=== PATIENT | female | born 1990 | race American Indian/Alaskan Native ===

== ENCOUNTER 2017-06-14 19:46 | Emergency (ER) | payer MEDICAID ==
[2017-06-14 20:07] VITALS: BP 129/92
[2017-06-14] MEDS ORDERED: Clindamycin HCl 150 MG Cap PO ONE (21:22)
[2017-06-14] MEDS ORDERED: Acetaminophen/HYDROcodone 325-10 MG Tab PO ONE ×2 (21:22→21:41)
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
[2017-06-14] MEDS ORDERED: Acetaminophen/HYDROcodone 325-10 MG Tab ONE (21:41)
== END 2017-06-14 21:56 | disposition home or self-care (01) ==
LOC: DL.ED 19:46
DX: O90.0 Disruption of cesarean delivery wound (principal); D64.9 Anemia, unspecified; Z90.49 Acquired absence of other specified parts of digestive tract; Z87.891 Personal history of nicotine dependence; Z88.0 Allergy status to penicillin
CPT/HCPCS: 87070; 99282; A9270; 87077; 87186

== ENCOUNTER 2017-09-22 00:30 | Emergency (ER) | payer MEDICAID ==
[2017-09-22 00:41] VITALS: BP 139/89
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
[2017-09-22] MEDS ORDERED: Acetaminophen/HYDROcodone 325-10 MG Tab PO ONE (01:22)
[2017-09-22] MEDS ORDERED: LORazepam 1 MG Tab PO ONE (01:29)
== END 2017-09-22 01:39 | disposition home or self-care (01) ==
LOC: DL.ED 00:30
DX: S06.0X1A Concussion with loss of consciousness of 30 minutes or less, initial encounter (principal); S02.5XXA Fracture of tooth (traumatic), initial encounter for closed fracture; S00.83XA Contusion of other part of head, initial encounter; Z87.891 Personal history of nicotine dependence; Z88.0 Allergy status to penicillin; Y04.0XXA Assault by unarmed brawl or fight, initial encounter
CPT/HCPCS: 70450; 70486; 99284; A9270

== ENCOUNTER 2017-10-23 11:32 | Emergency (ER) | payer MEDICAID, OTHER ==
[2017-10-23 12:54] VITALS: BP 104/88
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
[2017-10-23] MEDS ORDERED: Lidocaine 2% Jelly 10 ML Urojet MUCMEM ONE (13:01)
[2017-10-23] MEDS ORDERED: Benzocaine 20% Oral Spray 59.2 ML Canister MUCMEM ONE (13:01)
== END 2017-10-23 13:22 | disposition home or self-care (01) ==
LOC: DL.ED 11:32
DX: K02.9 Dental caries, unspecified (principal); Z87.891 Personal history of nicotine dependence; Z88.0 Allergy status to penicillin
CPT/HCPCS: 99282

== ENCOUNTER 2017-11-25 21:10 | Emergency (ER) | payer MEDICAID, OTHER ==
[2017-11-25 21:34] VITALS: BP 118/83
[2017-11-25 22:40] LABS: ANION GAP 13.1; CHLORIDE,CL 105 mmol/L (101-111); SODIUM,NA 138 mmol/L (135-145)
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
== END 2017-11-25 22:58 | disposition home or self-care (01) ==
LOC: DL.ED 21:10
DX: J06.9 Acute upper respiratory infection, unspecified (principal); F17.210 Nicotine dependence, cigarettes, uncomplicated; Z88.0 Allergy status to penicillin
CPT/HCPCS: 36415; 71046; 80053; 85025; 87081; 87430; 87804; 99283

== ENCOUNTER 2018-02-17 19:11 | Emergency (ER) | payer MEDICAID, OTHER ==
[2018-02-17] MEDS ORDERED: Sodium Chloride 0.9% 10 ML Syringe FLUSH PRN (19:49)
[2018-02-17] MEDS ORDERED: Sodium Chloride 0.9% 1,000 ML IV ONE (19:50)
[2018-02-17] MEDS ORDERED: Ondansetron 4 MG/2 ML SDV IV ONE ×2 (19:50→21:13)
[2018-02-17] MEDS ORDERED: Ketorolac 30 MG/ML SDV IVPUSH ONE (19:50)
--- NOTE | 2018-02-17 20:21 | EDM.PDOC ---
ED HPI GENERAL MEDICAL PROBLEM - General Chief Complaint: Headache Stated Complaint: [id number] HEADACHE FOR 3 DAYS Time Seen by Provider: 02/17/18 19:43 Source of Information: Reports: Patient, RN, RN Notes Reviewed History Limitations: Reports: No Limitations - History of Present Illness INITIAL COMMENTS - FREE TEXT/NARRATIVE: Patient presents to the ER with c/o headache for the past 3 days that she has been unable to get rid of. She states it is on the left side of the head and neck. She admits to taking Tylenol and Ibuprofen for the pain without relief. Patient admits to chills at times, no fever, no cough or sore throat. Patient admits to nausea at times. No vomiting. Patient states her children have had influenza. Onset: Gradual Location: Reports: Head Quality: Reports: Pressure, Throbbing Improves with: Reports: None Worsens with: Reports: None Associated Symptoms: Reports: Fever/Chills, Nausea/Vomiting Treatments RADIOLOGY ASST: Reports: Acetaminophen, NSAIDS Headache Pain Score (Numeric/FACES): 6 - Related Data Allergies Allergy/AdvReac Type Severity Reaction Status Date / Time Penicillins Allergy Hives Verified 02/17/18 19:29 Home Meds: Home Meds Vit #76/Iron,Carb/Fa [Prenatabs Rx] 1 tab .XX DAILY 02/17/18 [History] Ranitidine HCl [Ranitidine] 150 mg PO DAILY 02/17/18 [History] Past Medical History - Past Health History Medical/Surgical History: Denies Medical/Surgical History Gastrointestinal History: Reports: None 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 Social & Family History - Family History Family Medical History: Noncontributory - Tobacco Use Smoking Status *Q: Former Smoker Years of Tobacco use: 9 Packs/Tins Daily: 0.1 Used Tobacco, but Quit: Yes Month/Year Tobacco Last Used: Nov Second Hand Smoke Exposure: No - Caffeine Use Caffeine Use: Reports: Soda - Alcohol Use Days Per Week of Alcohol Use: 0 Number of Drinks Per Day: 6 Total Drinks Per Week: 0 - Recreational Drug Use Recreational Drug Use: Yes Drug Use in Last 12 Months: Yes Recreational Drug Type: Reports: Marijuana/Hashish Recreational Drug Use Frequency: Monthly - Living Situation & Occupation Living situation: Reports: with Significant Other Occupation: Employed ED ROS GENERAL - Review of Systems Review Of Systems: ROS reveals no pertinent complaints other than HPI. - Physical Exam Exam: See Below Exam Limited By: No Limitations General Appearance: Alert, WD/WN, No Apparent Distress Eye Exam: Bilateral Eye: EOMI, Normal Inspection, PERRL Ears: Normal External Exam, Hearing Grossly Normal Nose: Normal Inspection Throat/Mouth: Normal Inspection, Normal Voice, No Airway Compromise Head Exam: Atraumatic, Normocephalic Neck: Normal Inspection, Supple, Non-Tender, Full Range of Motion Respiratory/Chest: No Respiratory Distress, Lungs Clear, Normal Breath Sounds, No Accessory Muscle Use, Chest Non-Tender Cardiovascular: Normal Peripheral Pulses, Regular Rate, Rhythm, No Edema, No Gallop, No JVD, No Murmur, No Rub GI/Abdominal: Normal Bowel Sounds, Soft, Non-Tender, No Organomegaly, No Distention, No Abnormal Bruit, No Mass (Female) Exam: Deferred Rectal (Female) Exam: Deferred Neuro Exam (Abbreviated): Alert, Oriented, CN II-XII Intact, Normal Cognition, Normal Gait, Normal Reflexes, No Motor/Sensory Deficits Back Exam: Normal Inspection, Full Range of Motion, NT Extremities: Normal Inspection, Normal Range of Motion, Non-Tender, No Pedal Edema, Normal Capillary Refill Psychiatric: Normal Affect, Normal Mood Skin Exam: Warm, Dry, Intact, Normal Color, No Rash Course - Vital Signs Last Recorded V/S: Last Vital Signs Temp 97.1 F 02/17/18 19:20 Pulse 74 02/17/18 19:20 Resp 16 02/17/18 19:20 BP 120/77 02/17/18 19:20 Pulse Ox 100 02/17/18 19:20 - Orders/Labs/Meds Orders: Active Orders 24 hr Category Date Time Status Peripheral IV Care [RC] . DIRECTED Care 02/17/18 19:50 Active DRUG SCREEN URINE BIORAD [URCHEM] Stat Lab 02/17/18 20:10 Ordered HCG QUALITATIVE,URINE [URCHEM] Stat Lab 02/17/18 20:10 Ordered UA W/MICROSCOPIC [URIN] Stat Lab 02/17/18 20:10 Ordered Sodium Chloride 0.9% [Saline Flush] Med 02/17/18 19:49 Active 10 ml FLUSH ASDIRECTED PRN Peripheral IV Insertion Adult [OM.PC] Stat Oth 02/17/18 19:49 Ordered Medication Orders Sodium Chloride (Saline Flush) 10 ml FLUSH ASDIRECTED PRN PRN Reason: Keep Vein Open Last Admin: 02/17/18 20:05 Dose: 10 ml Labs: Laboratory Tests 02/17/18 02/17/18 02/17/18 Range/Units 20:03 20:03 20:10 WBC 6.6 (5.0-10.0) 10^3/uL RBC 4.80 (4.2-5.4) 10^6/uL Hgb 11.0 L (12.0-16.0) g/dL Hct 34.7 L (37.0-47.0) % MCV 72.3 L (80-100) fL MCH 22.9 L (27.0-34.0) pg MCHC 31.7 L (33.0-35.0) g/dL Plt Count 344 D (150-450) 10^3/uL Neut % (Auto) 40.9 L (42.2-75.2) % Lymph % (Auto) 48.9 (20.5-50.1) % Blaine % (Auto) 8.4 H (2-8) % Eos % (Auto) 1.5 (1.0-3.0) % Baso % (Auto) 0.3 (0.0-1.0) % Sodium 138 (135-145) mmol/L Potassium 4.1 (3.6-5.0) mmol/L Chloride 103 (101-111) mmol/L Carbon Dioxide 27.0 (21.0-31.0) mmol/L Anion Gap 12.1 BUN 13 (7-18) mg/dL Creatinine 0.5 L (0.6-1.3) mg/dL Est Cr Clr Drug Dosing 147.23 mL/min Estimated GFR (MDRD) > 60 BUN/Creatinine Ratio 26.00 Glucose 86 (74-105) mg/dL Calcium 9.1 (8.4-10.2) mg/dl Total Bilirubin 0.5 (0.2-1.0) mg/dL AST 48 H (10-42) IU/L ALT 39 (10-60) IU/L Alkaline Phosphatase 70 (42-121) IU/L Total Protein 7.9 (6.7-8.2) g/dl Albumin 4.0 (3.2-5.5) g/dl Globulin 3.9 Albumin/Globulin Ratio 1.03 Urine Color Yellow (YELLOW) Urine Appearance Clear (CLEAR) Urine pH 7.0 (5.0-9.0) Ur Specific [place] 1.020 (1.005-1.030) Urine Protein Negative (NEGATIVE) Urine Glucose (UA) Negative (NEGATIVE) Urine Ketones Negative (NEGATIVE) Urine Occult Blood Negative (NEGATIVE) Urine Nitrite Negative (NEGATIVE) Urine Bilirubin Negative (NEGATIVE) Urine Urobilinogen 0.2 (0.2-1.0) mg/dL Ur Leukocyte Esterase Negative (NEGATIVE) Urine RBC 0-5 /HPF Urine WBC 0-5 (0-5/HPF) /HPF Ur Epithelial Cells Rare /HPF Urine Bacteria Rare (0-FEW/HPF) /HPF Urine Mucus Rare /LPF Urine HCG, Qual Urine Opiates Screen (NEGATIVE) Ur Oxycodone Screen (NEGATIVE) Urine Methadone Screen (NEGATIVE) Ur Barbiturates Screen (NEGATIVE) U Tricyclic Antidepress (NEGATIVE) Ur Phencyclidine Scrn (NEGATIVE) Ur Amphetamine Screen (NEGATIVE) U Methamphetamines Scrn (NEGATIVE) Urine MDMA Screen (NEGATIVE) U Benzodiazepines Scrn (NEGATIVE) Urine Cocaine Screen (NEGATIVE) U Marijuana (THC) Screen (NEGATIVE) 02/17/18 02/17/18 Range/Units 20:10 20:10 WBC (5.0-10.0) 10^3/uL RBC (4.2-5.4) 10^6/uL Hgb (12.0-16.0) g/dL Hct (37.0-47.0) % MCV (80-100) fL MCH (27.0-34.0) pg MCHC (33.0-35.0) g/dL Plt Count (150-450) 10^3/uL Neut % (Auto) (42.2-75.2) % Lymph % (Auto) (20.5-50.1) % Blaine % (Auto) (2-8) % Eos % (Auto) (1.0-3.0) % Baso % (Auto) (0.0-1.0) % Sodium (135-145) mmol/L Potassium (3.6-5.0) mmol/L Chloride (101-111) mmol/L Carbon Dioxide (21.0-31.0) mmol/L Anion Gap BUN (7-18) mg/dL Creatinine (0.6-1.3) mg/dL Est Cr Clr Drug Dosing mL/min Estimated GFR (MDRD) BUN/Creatinine Ratio Glucose (74-105) mg/dL Calcium (8.4-10.2) mg/dl Total Bilirubin (0.2-1.0) mg/dL AST (10-42) IU/L ALT (10-60) IU/L Alkaline Phosphatase (42-121) IU/L Total Protein (6.7-8.2) g/dl Albumin (3.2-5.5) g/dl Globulin Albumin/Globulin Ratio Urine Color (YELLOW) Urine Appearance (CLEAR) Urine pH (5.0-9.0) Ur Specific [place] (1.005-1.030) Urine Protein (NEGATIVE) Urine Glucose (UA) (NEGATIVE) Urine Ketones (NEGATIVE) Urine Occult Blood (NEGATIVE) Urine Nitrite (NEGATIVE) Urine Bilirubin (NEGATIVE) Urine Urobilinogen (0.2-1.0) mg/dL Ur Leukocyte Esterase (NEGATIVE) Urine RBC /HPF Urine WBC (0-5/HPF) /HPF Ur Epithelial Cells /HPF Urine Bacteria (0-FEW/HPF) /HPF Urine Mucus /LPF Urine HCG, Qual Negative Urine Opiates Screen Negative (NEGATIVE) Ur Oxycodone Screen Negative (NEGATIVE) Urine Methadone Screen Negative (NEGATIVE) Ur Barbiturates Screen Negative (NEGATIVE) U Tricyclic Antidepress Negative (NEGATIVE) Ur Phencyclidine Scrn Negative (NEGATIVE) Ur Amphetamine Screen Negative (NEGATIVE) U Methamphetamines Scrn Negative (NEGATIVE) Urine MDMA Screen Negative (NEGATIVE) U Benzodiazepines Scrn Negative (NEGATIVE) Urine Cocaine Screen Negative (NEGATIVE) U Marijuana (THC) Screen Positive H (NEGATIVE) Influenza A & B: NEGATIVE Meds: Medications Generic Name Dose Route Start Last Admin Trade Name Freq PRN Reason Stop Dose Admin Sodium Chloride 10 ml 02/17/18 19:49 02/17/18 20:05 Saline Flush FLUSH 10 ml ASDIRECTED PRN Administration Keep Vein Open Discontinued Medications Generic Name Dose Route Start Last Admin Trade Name Freq PRN Reason Stop Dose Admin Al Hydroxide/Mg Hydroxide 30 ml 02/17/18 21:13 02/17/18 21:22 Gi Cocktail PO 02/17/18 21:14 30 ml ONETIME ONE Administration Hydromorphone HCl 0.5 mg 02/17/18 20:38 02/17/18 20:44 Dilaudid IVPUSH 02/17/18 20:39 0.5 mg ONETIME ONE Administration Sodium Chloride 1,000 mls @ 999 mls/hr 02/17/18 19:50 02/17/18 19:55 Normal Saline IV 02/17/18 20:50 999 mls/hr .BOLUS ONE Administration Ketorolac Tromethamine 30 mg 02/17/18 19:50 02/17/18 20:03 Toradol IVPUSH 02/17/18 19:51 30 mg ONETIME ONE Administration Ondansetron HCl 4 mg 02/17/18 19:50 02/17/18 20:02 Zofran IV 02/17/18 19:51 4 mg ONETIME ONE Administration Ondansetron HCl 4 mg 02/17/18 21:13 02/17/18 21:19 Zofran IV 02/17/18 21:14 4 mg ONETIME ONE Administration Departure - Departure Time of Disposition: 21:55 Disposition: Home, Self-Care 01 Condition: Fair Clinical Impression: Headache Qualifiers: Headache type: unspecified Headache chronicity pattern: acute headache Intractability: intractable Qualified Code(s): R51 - Headache - Discharge Information Instructions: General Headache Without Cause, [id number], Pain Medicine Instructions, [id number] Forms: ED Department Discharge Additional Instructions: RX: [place] Use Excedrin and Ibuprofen as directed first for headache Drink plenty of water and stay hydrated Follow up with your primary care facility. - My Orders Last 24 Hours: My Active Orders 02/17/18 19:49 Sodium Chloride 0.9% [Saline Flush] 10 ml FLUSH ASDIRECTED PRN Peripheral IV Insertion Adult [OM.PC] Stat 02/17/18 19:50 Peripheral IV Care [RC] . DIRECTED 02/17/18 20:10 DRUG SCREEN URINE BIORAD [URCHEM] Stat HCG QUALITATIVE,URINE [URCHEM] Stat UA W/MICROSCOPIC [URIN] Stat - Assessment/Plan Last 24 Hours: My Active Orders 02/17/18 19:49 Sodium Chloride 0.9% [Saline Flush] 10 ml FLUSH ASDIRECTED PRN Peripheral IV Insertion Adult [OM.PC] Stat 02/17/18 19:50 Peripheral IV Care [RC] . DIRECTED 02/17/18 20:10 DRUG SCREEN URINE BIORAD [URCHEM] Stat HCG QUALITATIVE,URINE [URCHEM] Stat UA W/MICROSCOPIC [URIN] Stat
[2018-02-17 20:28] LABS: CHLORIDE,CL 103 mmol/L (101-111); SODIUM,NA 138 mmol/L (135-145)
[2018-02-17] MEDS ORDERED: HYDROmorphone 0.5 MG/0.5 ML Syringe IVPUSH ONE (20:38)
[2018-02-17] MEDS ORDERED: GI Cocktail Oral Solution 30 ML PO ONE (21:13)
[2018-02-17 22:07] VITALS: BP 131/72
== END 2018-02-17 22:20 | disposition home or self-care (01) ==
LOC: DL.ED 19:11
DX: R51 Headache (principal); Z88.0 Allergy status to penicillin; Z79.899 Other long term (current) drug therapy; Z87.891 Personal history of nicotine dependence
CPT/HCPCS: 36415; 80053; 80305; 81001; 81025; 85025; 87804; 96361; 96374; 96375; 99284; A9270; J1170; J1885; J2405; J7030; J7050

== ENCOUNTER 2018-12-06 11:20 | Emergency (ER) | payer MEDICAID, OTHER ==
--- NOTE | 2018-12-06 12:05 | EDM.PDOC ---
ED HPI GENERAL MEDICAL PROBLEM - General Chief Complaint: ENT Problem Stated Complaint: STREP THROAT [id number] Time Seen by Provider: 12/06/18 12:04 Source of Information: Reports: Patient History Limitations: Reports: No Limitations - History of Present Illness INITIAL COMMENTS - FREE TEXT/NARRATIVE: Patient comes emergency department today with complaints of a sore throat and cough that has been going on since this morning. She does complain of a headache and some chills but did not check her temperature. All of her children are also being checked for strep and influenza. Her mother lives with her is positive for influenza B in the emergency department. She denies any cough or congestion. No shortness of breath or difficulty breathing. No abdominal pain. No nausea no vomiting. No diarrhea. She did not get her flu shot this year. She did have a family member recently diagnosed with strep as well. 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 Social & Family History - Family History Family Medical History: Noncontributory - Caffeine Use Caffeine Use: Reports: Soda - Living Situation & Occupation Living situation: Reports: with Significant Other Occupation: Employed ED ROS ENT - Review of Systems Review Of Systems: ROS reveals no pertinent complaints other than HPI. ED EXAM, ENT - Physical Exam Exam: See Below Exam Limited By: No Limitations General Appearance: Alert, WD/WN, No Apparent Distress Eye Exam: Bilateral Eye: Normal Inspection, PERRL Ears: Normal External Exam, Normal Canal, Hearing Grossly Normal, Normal TMs Nose: Normal Inspection, Normal Mucousa, No Blood Mouth/Throat: Normal Inspection, Normal Gums, Normal Lips, Normal Teeth Head: Atraumatic, Normocephalic Neck: Normal Inspection, Supple, Non-Tender, Full Range of Motion Respiratory/Chest: No Respiratory Distress, Lungs Clear, Normal Breath Sounds, No Accessory Muscle Use Cardiovascular: Normal Peripheral Pulses, Regular Rate, Rhythm GI/Abdominal: Normal Bowel Sounds, Soft, Non-Tender (Female) Exam: Deferred Rectal (Female) Exam: Deferred Back: Normal Inspection Extremities: Normal Inspection, Normal Range of Motion, Normal Capillary Refill Neurological: Alert, Oriented, CN II-XII Intact, No Motor/Sensory Deficits Psychiatric: Normal Affect Skin: Warm, Dry, Intact, Normal Color, No Rash Lymphatic: No Adenopathy Course - Vital Signs Last Recorded V/S: Last Vital Signs Temp 36.4 C 12/06/18 12:05 Pulse 86 12/06/18 12:05 Resp 18 12/06/18 12:05 BP 130/79 12/06/18 12:05 Pulse Ox 100 12/06/18 12:05 - Orders/Labs/Meds Orders: Active Orders 24 hr Category Date Time Status CULTURE STREP A CONFIRMATION [] Stat Lab 12/06/18 11:10 Results STREP SCRN A RAPID W CULT CONF [] Stat Lab 12/06/18 11:10 Results Labs: Microbiology 12/06/18 11:10 Group A Streptococcus Rapid Screen - Final Throat NEGATIVE STREP A SCREEN - Re-Assessments/Exams Free Text/Narrative Re-Assessment/Exam: 12/06/18 14:12 She has no overt signs of influenza no fever. We will treat her with some prophylaxis of Tamiflu she is comfortable with this plan and her questions are answered. Departure - Departure Time of Disposition: 12:36 Disposition: Home, Self-Care 01 Clinical Impression: Exposure to influenza URI (upper respiratory infection) Qualifiers: URI type: unspecified URI Qualified Code(s): J06.9 - Acute upper respiratory infection, unspecified - Discharge Information Prescriptions: Oseltamivir [Tamiflu] 75 mg PO DAILY 10 Days #10 cap Instructions: Viral Respiratory Infection, [id number] Referrals: Jonah Dong MD [Primary Care Provider] - Forms: ED Department Discharge Additional Instructions: Tylenol and or Ibuprofen as needed for pain fever discomfort. Increase fluids over the next few days. Good hand hygiene at home no sharing of silver goodman. OTC nasal saline rinse for nasal drainage and congestion. Honey as needed for cough. Tamiflu 75mg by mouth once daily for the next 10 days RX given to the patient. Return to the ED if new or worsening symptoms. Follow up with primary care provider in the next 4-6 days if not improving sooner if worse. - My Orders Last 24 Hours: My Active Orders 12/06/18 11:10 CULTURE STREP A CONFIRMATION [RM] Stat STREP SCRN A RAPID W CULT CONF [RM] Stat - Assessment/Plan Last 24 Hours: My Active Orders 12/06/18 11:10 CULTURE STREP A CONFIRMATION [RM] Stat STREP SCRN A RAPID W CULT CONF [RM] Stat Assessment:: URI Influenza exposure influenza prophylaxis. Plan: Tylenol and or Ibuprofen as needed for pain fever discomfort. Increase fluids over the next few days. Good hand hygiene at home no sharing of silver goodman. OTC nasal saline rinse for nasal drainage and congestion. Honey as needed for cough. Tamiflu 75mg by mouth once daily for the next 10 days RX given to the patient. Return to the ED if new or worsening symptoms. Follow up with primary care provider in the next 4-6 days if not improving sooner if worse.
[2018-12-06 12:21] VITALS: BP 130/79
== END 2018-12-06 12:51 | disposition home or self-care (01) ==
LOC: DL.ED 11:20
DX: J06.9 Acute upper respiratory infection, unspecified (principal); Z20.828 Contact with and (suspected) exposure to other viral communicable diseases; Z88.0 Allergy status to penicillin; Z79.899 Other long term (current) drug therapy
CPT/HCPCS: 87081; 87430; 99283

== ENCOUNTER 2019-05-12 20:43 | Emergency (ER) | payer MEDICAID, OTHER ==
[2019-05-12 21:03] VITALS: BP 131/77
--- NOTE | 2019-05-12 22:10 | EDM.PDOC ---
ED HPI GENERAL MEDICAL PROBLEM - General Chief Complaint: Back Pain or Injury Stated Complaint: FELL AND HIT RIB AND FELT IT CRACK Time Seen by Provider: 05/12/19 21:30 Source of Information: Reports: Patient History Limitations: Reports: No Limitations - History of Present Illness INITIAL COMMENTS - FREE TEXT/NARRATIVE: fell on child's bike when trying to catch self and landed on left side, pain to mid lateral left ribs worse with movement and deep breathing. No nausea or vomiting. pain more anterior chest. Took ibpurofen prior to coming to ER. 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: , 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 Musculoskeletal History: Reports: None Neurological History: Reports: None Psychiatric History: Reports: Addiction, Anxiety, Depression Endocrine/Metabolic History: Reports: None Hematologic History: Reports: Anemia, Blood Transfusion(s) Immunologic History: Reports: None Oncologic (Cancer) History: Reports: None Dermatologic History: Reports: None - Infectious Disease History Infectious Disease History: Reports: Chicken Pox - Past Surgical History Head Surgeries/Procedures: Reports: None GI Surgical History: Reports: Appendectomy, Cholecystectomy Female Surgical History: Reports: Section, D&C, Other (See Below) Other Female Surgeries/Procedures: tubal. Social & Family History - Family History Family Medical History: Noncontributory - Tobacco Use Smoking Status *Q: Current Every Day Smoker Years of Tobacco use: 10 Packs/Tins Daily: 0.2 - Caffeine Use Caffeine Use: Reports: Coffee - Recreational Drug Use Recreational Drug Use: Yes Drug Use in Last 12 Months: Yes Recreational Drug Type: Reports: Marijuana/Hashish Recreational Drug Use Frequency: Weekly - Living Situation & Occupation Living situation: Reports: with Significant Other Occupation: Employed ED ROS GENERAL - Review of Systems Review Of Systems: ROS reveals no pertinent complaints other than HPI. ED EXAM, GENERAL - Physical Exam Exam: See Below Exam Limited By: No Limitations General Appearance: Alert, Mild Distress Eye Exam: Bilateral Eye: PERRL Ears: Normal External Exam Nose: Normal Inspection Throat/Mouth: Normal Inspection Neck: Normal Inspection, Full Range of Motion Respiratory/Chest: No Respiratory Distress, Lungs Clear. No: Chest Non-Tender ( left chest below bra line) Cardiovascular: Normal Peripheral Pulses, Regular Rate, Rhythm GI/Abdominal: Normal Bowel Sounds Neurological: Alert, Oriented, Normal Cognition Psychiatric: Normal Affect Skin Exam: Warm, Dry, Intact, Normal Color Course - Vital Signs Last Recorded V/S: Last Vital Signs Temp 97.8 F 05/12/19 20:46 Pulse 118 H 05/12/19 20:46 Resp 20 05/12/19 20:46 BP 131/77 05/12/19 20:46 Pulse Ox 100 05/12/19 20:46 - Orders/Labs/Meds Orders: Active Orders 24 hr Category Date Time Status Ribs 2V w Chest Lt [CR] Urgent Exams 05/12/19 20:55 Taken Departure - Departure Time of Disposition: 22:01 Disposition: Home, Self-Care 01 Condition: Good Clinical Impression: Left rib fracture Qualifiers: Encounter type: initial encounter Rib fracture type: single rib Fracture type: closed Qualified Code(s): S22.32XA - Fracture of one rib, left side, initial encounter for closed fracture - Discharge Information *PRESCRIPTION DRUG MONITORING PROGRAM REVIEWED*: Yes *COPY OF PRESCRIPTION DRUG MONITORING REPORT IN PATIENT JONATHAN: No Instructions: Rib Fracture, [id number] Additional Instructions: splint left ribs with moving, lasughing, coughing or sneezing deep breathing exercises every 2 hours while awake alternate tylenol 650mg and ibuprofen 600mg every 4 hours as needed for pain - My Orders Last 24 Hours: My Active Orders 05/12/19 20:55 Ribs 2V w Chest Lt [CR] Urgent - Assessment/Plan Last 24 Hours: My Active Orders 05/12/19 20:55 Ribs 2V w Chest Lt [CR] Urgent
== END 2019-05-12 22:13 | disposition home or self-care (01) ==
LOC: DL.ED 20:43
DX: S22.32XA Fracture of one rib, left side, initial encounter for closed fracture (principal); F17.210 Nicotine dependence, cigarettes, uncomplicated; Z88.0 Allergy status to penicillin; W01.0XXA Fall on same level from slipping, tripping and stumbling without subsequent striking against object, initial encounter
CPT/HCPCS: 71101-LT; 99283-25

== ENCOUNTER 2019-08-14 23:20 | Emergency (ER) | payer MEDICAID, OTHER ==
--- NOTE | 2019-08-15 00:02 | EDM.PDOC ---
ED HPI GENERAL MEDICAL PROBLEM - General Chief Complaint: Abdominal Pain Stated Complaint: INTERNAL PAIN R SIDE AND BACK, FAST HEARTBEAT Time Seen by Provider: 08/14/19 23:58 Source of Information: Reports: Patient History Limitations: Reports: No Limitations - History of Present Illness INITIAL COMMENTS - FREE TEXT/NARRATIVE: states was sent to [facility] for abd pain, was there 6 days had CAT & U.S Dx with hep C , no Bx done and told to go to ER if pain returns. been in pain past 5 hours. did eat tonight of nam[place] rice and corn without vomiting/diarrhoea. been nauseous but able to eat. Right Upper Abdomen Pain Score (Numeric/FACES): 6 - Related Data Allergies Allergy/AdvReac Type Severity Reaction Status Date / Time morphine Allergy Hives Verified 08/14/19 23:38 Penicillins Allergy Hives Verified 08/14/19 23:38 Home Meds: Home Meds Amoxicillin/Potassium Clav [Augmentin 875-125 Tablet] 1 each PO BID 08/14/19 [ History] Past Medical History - Past Health History Medical/Surgical History: Denies Medical/Surgical History HEENT History: Reports: None Cardiovascular History: Reports: None Respiratory History: Reports: None Gastrointestinal History: Reports: None, Hepatitis Genitourinary History: Reports: STD 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: , 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 Musculoskeletal History: Reports: None Neurological History: Reports: None Psychiatric History: Reports: Addiction, Anxiety, Depression Endocrine/Metabolic History: Reports: None Hematologic History: Reports: Anemia, Blood Transfusion(s) Immunologic History: Reports: None Oncologic (Cancer) History: Reports: None Dermatologic History: Reports: None - Infectious Disease History Infectious Disease History: Reports: Chicken Pox, Hepatitis C - Past Surgical History Head Surgeries/Procedures: Reports: None GI Surgical History: Reports: Appendectomy, Cholecystectomy Female Surgical History: Reports: Section, D&C, Other (See Below) Other Female Surgeries/Procedures: tubal. Social & Family History - Family History Family Medical History: Noncontributory - Tobacco Use Smoking Status *Q: Former Smoker Used Tobacco, but Quit: Yes Month/Year Tobacco Last Used: jun 2019 Second Hand Smoke Exposure: Yes - Caffeine Use Caffeine Use: Reports: Coffee - Recreational Drug Use Recreational Drug Use: Yes Drug Use in Last 12 Months: Yes - Living Situation & Occupation Living situation: Reports: with Significant Other Occupation: Employed ED ROS GENERAL - Review of Systems Review Of Systems: ROS reveals no pertinent complaints other than HPI. ED EXAM, GI/ABD - Physical Exam Exam: See Below Exam Limited By: No Limitations General Appearance: Alert, WD/WN, Mild Distress, Other (upset). No: Active Emesis Ears: Hearing Grossly Normal Throat/Mouth: Normal Voice, No Airway Compromise Head: Atraumatic Neck: Non-Tender, Full Range of Motion Respiratory/Chest: No Respiratory Distress Cardiovascular: Regular Rate, Rhythm GI/Abdominal Exam: Soft, Tender, Other. No: Distended, Guarding, Rigid, Rebound Neurological: Alert, Oriented, Normal Cognition, Normal Gait, No Motor/Sensory Deficits Psychiatric: Normal Affect, Normal Mood Skin Exam: Warm, Dry, Normal Color Lymphatic: No Adenopathy Course - Vital Signs Last Recorded V/S: Last Vital Signs Temp 36.7 C 08/15/19 01:25 Pulse 91 08/15/19 01:25 Resp 18 08/15/19 01:25 BP 126/82 08/15/19 01:25 Pulse Ox 98 08/15/19 01:25 - Orders/Labs/Meds Labs: Laboratory Tests 08/14/19 08/14/19 08/14/19 Range/Units 23:59 23:59 23:59 WBC 9.8 (5.0-10.0) 10^3/uL RBC 5.22 (4.2-5.4) 10^6/uL Hgb 13.3 D (12.0-16.0) g/dL Hct 40.5 (37.0-47.0) % MCV 77.6 L D (80-100) fL MCH 25.5 L (27.0-34.0) pg MCHC 32.8 L (33.0-35.0) g/dL Plt Count 309 (150-450) 10^3/uL Neut % (Auto) 64.1 (42.2-75.2) % Lymph % (Auto) 23.9 (20.5-50.1) % Granite % (Auto) 10.5 H (2-8) % Eos % (Auto) 1.4 (1.0-3.0) % Baso % (Auto) 0.1 (0.0-1.0) % Sodium 136 (135-145) mmol/L Potassium 4.6 (3.6-5.0) mmol/L Chloride 102 (101-111) mmol/L Carbon Dioxide 27.0 (21.0-31.0) mmol/L Anion Gap 11.6 BUN 18 (7-18) mg/dL Creatinine 0.6 (0.6-1.3) mg/dL Est Cr Clr Drug Dosing 115.47 mL/min Estimated GFR (MDRD) > 60 BUN/Creatinine Ratio 30.00 Glucose 107 H (74-105) mg/dL Lactic Acid 1.1 (0.5-2.2) mmol/L Calcium 9.0 (8.4-10.2) mg/dl Total Bilirubin 2.7 H (0.2-1.0) mg/dL AST 83 H (10-42) IU/L ALT 280 H (10-60) IU/L Alkaline Phosphatase 142 H (42-121) IU/L Total Protein 8.4 H (6.7-8.2) g/dl Albumin 3.8 (3.2-5.5) g/dl Globulin 4.6 Albumin/Globulin Ratio 0.83 Amylase 108 H (28-100) U/L Lipase 39 (22-51) U/L Urine Color (YELLOW) Urine Appearance (CLEAR) Urine pH (5.0-9.0) Ur Specific [place] (1.005-1.030) Urine Protein (NEGATIVE) Urine Glucose (UA) (NEGATIVE) Urine Ketones (NEGATIVE) Urine Occult Blood (NEGATIVE) Urine Nitrite (NEGATIVE) Urine Bilirubin (NEGATIVE) Urine Urobilinogen (0.2-1.0) mg/dL Ur Leukocyte Esterase (NEGATIVE) Urine RBC /HPF Urine WBC (0-5/HPF) /HPF Ur Epithelial Cells (NOT SEEN) /HPF Urine Bacteria (0-FEW/HPF) /HPF Urine Opiates Screen (NEGATIVE) Ur Oxycodone Screen (NEGATIVE) Urine Methadone Screen (NEGATIVE) Ur Barbiturates Screen (NEGATIVE) U Tricyclic Antidepress (NEGATIVE) Ur Phencyclidine Scrn (NEGATIVE) Ur Amphetamine Screen (NEGATIVE) U Methamphetamines Scrn (NEGATIVE) Urine MDMA Screen (NEGATIVE) U Benzodiazepines Scrn (NEGATIVE) Urine Cocaine Screen (NEGATIVE) U Marijuana (THC) Screen (NEGATIVE) 08/15/19 08/15/19 Range/Units 00:15 00:15 WBC (5.0-10.0) 10^3/uL RBC (4.2-5.4) 10^6/uL Hgb (12.0-16.0) g/dL Hct (37.0-47.0) % MCV (80-100) fL MCH (27.0-34.0) pg MCHC (33.0-35.0) g/dL Plt Count (150-450) 10^3/uL Neut % (Auto) (42.2-75.2) % Lymph % (Auto) (20.5-50.1) % Granite % (Auto) (2-8) % Eos % (Auto) (1.0-3.0) % Baso % (Auto) (0.0-1.0) % Sodium (135-145) mmol/L Potassium (3.6-5.0) mmol/L Chloride (101-111) mmol/L Carbon Dioxide (21.0-31.0) mmol/L Anion Gap BUN (7-18) mg/dL Creatinine (0.6-1.3) mg/dL Est Cr Clr Drug Dosing mL/min Estimated GFR (MDRD) BUN/Creatinine Ratio Glucose (74-105) mg/dL Lactic Acid (0.5-2.2) mmol/L Calcium (8.4-10.2) mg/dl Total Bilirubin (0.2-1.0) mg/dL AST (10-42) IU/L ALT (10-60) IU/L Alkaline Phosphatase (42-121) IU/L Total Protein (6.7-8.2) g/dl Albumin (3.2-5.5) g/dl Globulin Albumin/Globulin Ratio Amylase (28-100) U/L Lipase (22-51) U/L Urine Color Yellow (YELLOW) Urine Appearance Clear (CLEAR) Urine pH 7.0 (5.0-9.0) Ur Specific [place] 1.020 (1.005-1.030) Urine Protein Negative (NEGATIVE) Urine Glucose (UA) Negative (NEGATIVE) Urine Ketones Negative (NEGATIVE) Urine Occult Blood Trace-intact H (NEGATIVE) Urine Nitrite Negative (NEGATIVE) Urine Bilirubin Negative (NEGATIVE) Urine Urobilinogen 1.0 (0.2-1.0) mg/dL Ur Leukocyte Esterase Negative (NEGATIVE) Urine RBC 5-10 H /HPF Urine WBC 0-5 (0-5/HPF) /HPF Ur Epithelial Cells Few (NOT SEEN) /HPF Urine Bacteria Moderate H (0-FEW/HPF) /HPF Urine Opiates Screen Negative (NEGATIVE) Ur Oxycodone Screen Negative (NEGATIVE) Urine Methadone Screen Negative (NEGATIVE) Ur Barbiturates Screen Negative (NEGATIVE) U Tricyclic Antidepress Negative (NEGATIVE) Ur Phencyclidine Scrn Negative (NEGATIVE) Ur Amphetamine Screen Negative (NEGATIVE) U Methamphetamines Scrn Negative (NEGATIVE) Urine MDMA Screen Negative (NEGATIVE) U Benzodiazepines Scrn Negative (NEGATIVE) Urine Cocaine Screen Negative (NEGATIVE) U Marijuana (THC) Screen Positive H (NEGATIVE) Meds: Medications Discontinued Medications Generic Name Dose Route Start Last Admin Trade Name Freq PRN Reason Stop Dose Admin Butorphanol Tartrate 2 mg 08/15/19 01:04 Stadol IM 08/15/19 01:05 ONETIME ONE Butorphanol Tartrate 2 mg 08/15/19 01:08 08/15/19 01:20 Stadol IVPUSH 08/15/19 01:09 2 mg ONETIME ONE Administration Ondansetron HCl 4 mg 08/15/19 01:09 08/15/19 01:17 Zofran IV 08/15/19 01:10 4 mg ONETIME ONE Administration Promethazine HCl 25 mg 08/15/19 01:04 Phenergan IM 08/15/19 01:05 ONETIME ONE - Re-Assessments/Exams Free Text/Narrative Re-Assessment/Exam: 08/15/19 01:05 results discussed with pt where her LFTs are much better than last week while she was at [facility]. Departure - Departure Time of Disposition: 01:30 Disposition: Home, Self-Care 01 Condition: Good Clinical Impression: Abdominal pain Qualifiers: Abdominal location: right upper quadrant Qualified Code(s): R10.11 - Right upper quadrant pain Hepatitis C Qualifiers: Viral hepatitis chronicity: chronic Hepatic coma status: without hepatic coma Qualified Code(s): B18.2 - Chronic viral hepatitis C - Discharge Information Instructions: Hepatitis C, [id number] Referrals: Jonah Dong MD [Primary Care Provider] - Forms: ED Department Discharge Additional Instructions: 1) follow up with clinic
[2019-08-15 00:29] LABS: ANION GAP 11.6; CHLORIDE,CL 102 mmol/L (101-111); SODIUM,NA 136 mmol/L (135-145)
[2019-08-15] MEDS ORDERED: Promethazine 25 MG/ML SDV IM ONE (01:04)
[2019-08-15] MEDS ORDERED: Butorphanol 2 MG/ML SDV IM ONE (01:04)
[2019-08-15] MEDS ORDERED: Butorphanol 2 MG/ML SDV IVPUSH ONE (01:08)
[2019-08-15] MEDS ORDERED: Ondansetron 4 MG/2 ML SDV IV ONE (01:09)
[2019-08-15 01:26] VITALS: BP 126/82; PULSE 91
== END 2019-08-15 01:31 | disposition home or self-care (01) ==
LOC: DL.ED 23:20
DX: B18.2 Chronic viral hepatitis C (principal); Z88.0 Allergy status to penicillin; Z88.5 Allergy status to narcotic agent; Z90.49 Acquired absence of other specified parts of digestive tract; Z87.891 Personal history of nicotine dependence
CPT/HCPCS: 36415; 80053; 80305; 81001; 82150; 83605; 83690; 85025; 96374; 96375; 99284; J0595; J2405

== ENCOUNTER 2020-02-12 22:21 | Emergency (ER) | payer MEDICAID, OTHER ==
[2020-02-12 22:29] VITALS: BP 144/95; PULSE 95
[2020-02-12] MEDS ORDERED: Albuterol/Ipratropium 3.0-0.5 MG/3 ML Neb Soln NEB ONE (22:43)
--- NOTE | 2020-02-12 22:45 | EDM.PDOC ---
ED HPI GENERAL MEDICAL PROBLEM - General Chief Complaint: Respiratory Problem Stated Complaint: FLU, COUGH, SHORTNESS OF BREATH Time Seen by Provider: 02/12/20 22:43 Source of Information: Reports: Patient History Limitations: Reports: No Limitations - History of Present Illness INITIAL COMMENTS - FREE TEXT/NARRATIVE: c/o few days h/o fever & coughing so hard that she gets out of breath. Middle Back Pain Score (Numeric/FACES): 3 - Related Data Allergies Allergy/AdvReac Type Severity Reaction Status Date / Time morphine Allergy Hives Verified 02/12/20 22:34 Penicillins Allergy Hives Verified 02/12/20 22:34 Home Meds: Home Meds Ascorbic Acid [Vitamin C] 1,000 mg PO DAILY 02/12/20 [History] Pnv No.95/Ferrous Fum/Folic AC [ Caplet] 1 tab PO DAILY 02/12/20 [ History] Past Medical History - Past Health History Medical/Surgical History: Denies Medical/Surgical History HEENT History: Reports: None Cardiovascular History: Reports: None Respiratory History: Reports: None Gastrointestinal History: Reports: None, Hepatitis Genitourinary History: Reports: STD 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: , 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 Musculoskeletal History: Reports: None Neurological History: Reports: None Psychiatric History: Reports: Addiction, Anxiety, Depression Endocrine/Metabolic History: Reports: None Hematologic History: Reports: Anemia, Blood Transfusion(s) Immunologic History: Reports: None Oncologic (Cancer) History: Reports: None Dermatologic History: Reports: None - Infectious Disease History Infectious Disease History: Reports: Chicken Pox, Hepatitis C - Past Surgical History Head Surgeries/Procedures: Reports: None GI Surgical History: Reports: Appendectomy, Cholecystectomy Female Surgical History: Reports: Section, D&C, Other (See Below) Other Female Surgeries/Procedures: tubal. Social & Family History - Family History Family Medical History: Noncontributory - Tobacco Use Smoking Status *Q: Former Smoker Used Tobacco, but Quit: Yes Month/Year Tobacco Last Used: nov 2019 Second Hand Smoke Exposure: No - Caffeine Use Caffeine Use: Reports: Coffee - Recreational Drug Use Recreational Drug Use: No - Living Situation & Occupation Living situation: Reports: with Significant Other Occupation: Employed ED ROS GENERAL - Review of Systems Review Of Systems: Comprehensive ROS is negative, except as noted in HPI. ED EXAM, GENERAL - Physical Exam Exam: See Below Exam Limited By: No Limitations General Appearance: Alert, WD/WN, Mild Distress, Other (episodic cough spasms) Ears: Hearing Grossly Normal Throat/Mouth: Normal Voice, No Airway Compromise Head: Atraumatic Neck: Non-Tender, Full Range of Motion Respiratory/Chest: No Accessory Muscle Use, Rhonchi. No: Decreased Breath Sounds Cardiovascular: Regular Rate, Rhythm GI/Abdominal: Soft, Non-Tender Neurological: Alert, Oriented, Normal Cognition, Normal Gait, No Motor/Sensory Deficits Psychiatric: Normal Affect, Normal Mood Skin Exam: Warm, Dry, Normal Color Lymphatic: No Adenopathy Course - Vital Signs Last Recorded V/S: Last Vital Signs Temp 36.6 C 02/12/20 22:25 Pulse 95 02/12/20 22:25 Resp 16 02/12/20 22:25 BP 144/95 H 02/12/20 22:25 Pulse Ox 100 02/12/20 22:25 - Orders/Labs/Meds Orders: Active Orders 24 hr Category Date Time Status RT Aerosol Therapy [RC] ASDIRECTED Care 02/12/20 22:43 Active Isolation [COMM] Routine Oth 02/12/20 22:34 Active Meds: Medications Discontinued Medications Generic Name Dose Route Start Last Admin Trade Name Freq PRN Reason Stop Dose Admin Albuterol/Ipratropium 3 ml 02/12/20 22:43 02/12/20 22:48 Duoneb 3.0-0.5 Mg/3 Ml NEB 02/12/20 22:44 3 ml ONETIME ONE Administration - Re-Assessments/Exams Free Text/Narrative Re-Assessment/Exam: 02/12/20 22:55 s/p neb = much better Departure - Departure Time of Disposition: 22:56 Disposition: Home, Self-Care 01 Condition: Good Clinical Impression: Bronchospasm with bronchitis, acute - Discharge Information Instructions: Acute Bronchitis, Adult, [id number] Forms: ED Department Discharge Additional Instructions: 1) use neb 3 to 4 times daily for cough 2) rest and drink lots of liquids 3) follow up at clinic r silvana; albuterol 2.5mg solution tid prn Sepsis Event Note - Evaluation Sepsis Screening Result: No Definite Risk - Focused Exam Vital Signs: Vital Signs Temp Pulse Resp BP Pulse Ox 02/12/20 22:25 36.6 C 95 16 144/95 H 100 Date Exam was Performed: 02/12/20 Time Exam was Performed: 22:55 - My Orders Last 24 Hours: My Active Orders 02/12/20 22:34 Isolation [COMM] Routine 02/12/20 22:43 RT Aerosol Therapy [RC] ASDIRECTED - Assessment/Plan Last 24 Hours: My Active Orders 02/12/20 22:34 Isolation [COMM] Routine 02/12/20 22:43 RT Aerosol Therapy [RC] ASDIRECTED
== END 2020-02-12 23:02 | disposition home or self-care (01) ==
LOC: DL.ED 22:21
DX: J20.9 Acute bronchitis, unspecified (principal); Z87.891 Personal history of nicotine dependence; Z88.5 Allergy status to narcotic agent; Z88.0 Allergy status to penicillin
CPT/HCPCS: 87804; 99283-25; J7620-GY

== ENCOUNTER 2020-07-03 17:17 | Emergency (ER) | payer MEDICAID, OTHER ==
[2020-07-03 17:25] VITALS: BP 147/88; PULSE 110
[2020-07-03] MEDS ORDERED: Bacitracin Oint 1 GM U/D Packet TOP ONE (17:25)
[2020-07-03] MEDS ORDERED: Lidocaine 1% 30 ML SDV INJECT ONE (17:25)
[2020-07-03] MEDS ORDERED: Clindamycin HCl 150 MG Cap PO ONE (17:26)
--- NOTE | 2020-07-03 17:27 | EDM.PDOC ---
ED HPI GENERAL MEDICAL PROBLEM - General Chief Complaint: Skin Complaint Stated Complaint: TOE PAIN Left Toe-Ring Pain Score (Numeric/FACES): 6 - Related Data Allergies Allergy/AdvReac Type Severity Reaction Status Date / Time morphine Allergy Hives Verified 07/03/20 17:21 Penicillins Allergy Hives Verified 07/03/20 17:21 Home Meds: Home Meds Ascorbic Acid [Vitamin C] 1,000 mg PO DAILY 02/12/20 [History] Pnv No.95/Ferrous Fum/Folic AC [ Caplet] 1 tab PO DAILY 02/12/20 [History] Past Medical History - Past Health History Medical/Surgical History: Denies Medical/Surgical History HEENT History: Reports: None Cardiovascular History: Reports: None Respiratory History: Reports: None Gastrointestinal History: Reports: None, Hepatitis Genitourinary History: Reports: STD 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: , 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 Musculoskeletal History: Reports: None Neurological History: Reports: None Psychiatric History: Reports: Addiction, Anxiety, Depression Endocrine/Metabolic History: Reports: None Hematologic History: Reports: Anemia, Blood Transfusion(s) Immunologic History: Reports: None Oncologic (Cancer) History: Reports: None Dermatologic History: Reports: None - Infectious Disease History Infectious Disease History: Reports: Chicken Pox, Hepatitis C - Past Surgical History Head Surgeries/Procedures: Reports: None GI Surgical History: Reports: Appendectomy, Cholecystectomy Female Surgical History: Reports: Section, D&C, Other (See Below) Other Female Surgeries/Procedures: tubal. Social & Family History - Family History Family Medical History: Noncontributory - Caffeine Use Caffeine Use: Reports: Coffee - Living Situation & Occupation Living situation: Reports: with Significant Other Occupation: Employed Course - Vital Signs Last Recorded V/S: Last Vital Signs Temp 97.9 F 07/03/20 17:22 Pulse 110 H 07/03/20 17:22 Resp 16 07/03/20 17:22 BP 147/88 H 07/03/20 17:22 Pulse Ox 98 07/03/20 17:22 - Orders/Labs/Meds Orders: Active Orders 24 hr Category Date Time Status Bacitracin [Bacitracin Oint 1 GM] Med 07/03/20 17:25 Once 1 dose TOP ONETIME ONE Lidocaine 1% [Xylocaine-MPF 1%] Med 07/03/20 17:25 Once 30 ml INJECT ONETIME ONE clindamycin HCL [Cleocin] Med 07/03/20 17:26 Once 300 mg PO ONETIME ONE Departure - Discharge Information Sepsis Event Note (ED) - Evaluation Sepsis Screening Result: No Definite Risk - Focused Exam Vital Signs: Vital Signs Temp Pulse Resp BP Pulse Ox 07/03/20 17:22 97.9 F 110 H 16 147/88 H 98 - My Orders Last 24 Hours: My Active Orders 07/03/20 17:25 Bacitracin [Bacitracin Oint 1 GM] 1 dose TOP ONETIME ONE Lidocaine 1% [Xylocaine-MPF 1%] 30 ml INJECT ONETIME ONE 07/03/20 17:26 clindamycin HCL [Cleocin] 300 mg PO ONETIME ONE - Assessment/Plan Last 24 Hours: My Active Orders 07/03/20 17:25 Bacitracin [Bacitracin Oint 1 GM] 1 dose TOP ONETIME ONE Lidocaine 1% [Xylocaine-MPF 1%] 30 ml INJECT ONETIME ONE 07/03/20 17:26 clindamycin HCL [Cleocin] 300 mg PO ONETIME ONE
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
== END 2020-07-03 18:06 | disposition home or self-care (01) ==
LOC: DL.ED 17:17
DX: L03.032 Cellulitis of left toe (principal); Z88.5 Allergy status to narcotic agent; Z88.0 Allergy status to penicillin; Z98.890 Other specified postprocedural states
CPT/HCPCS: 10060; 73660-T3; 87070; 87186; 99283-25; A9270-GY; J2001

== ENCOUNTER 2021-03-29 19:26 | Emergency (ER) | payer MEDICAID ==
[2021-03-29 20:19] VITALS: BP 148/107; PULSE 117
--- NOTE | 2021-03-29 20:46 | EDM.PDOC ---
ED HPI GENERAL MEDICAL PROBLEM - General Chief Complaint: ENT Problem Stated Complaint: STREP THROAT, EAR PAIN LEFT SIDE PER PT Time Seen by Provider: 03/29/21 20:20 Source of Information: Reports: Patient, RN, RN Notes Reviewed History Limitations: Reports: No Limitations - History of Present Illness INITIAL COMMENTS - FREE TEXT/NARRATIVE: Hansa is a 31 y/o female who presents to the ED via personal vehicle with complaints of sore throat with dysphagia. The patient states her symptoms began two days ago and have progressively worsened in this time. She attests to shaking chills (she has no thermometer at home to take a temperature) and general malaise. She denies sinus pressure/pain/drainage, drooling, cough, chest pain, palpitations, or shortness of breath. She has taken one dose of Tylenol which has offered her no alleviation of symptoms. Treatments PSYCHOLOGIST CLINICAL: Reports: Acetaminophen - Related Data Allergies Allergy/AdvReac Type Severity Reaction Status Date / Time morphine Allergy Hives Verified 07/03/20 17:21 Penicillins Allergy Hives Verified 07/03/20 17:21 Home Meds: Home Meds Ascorbic Acid [Vitamin C] 1,000 mg PO DAILY 02/12/20 [History] Pnv No.95/Ferrous Fum/Folic AC [ Caplet] 1 tab PO DAILY 02/12/20 [History] Past Medical History - Past Health History Medical/Surgical History: Denies Medical/Surgical History HEENT History: Reports: None Cardiovascular History: Reports: None Respiratory History: Reports: None Gastrointestinal History: Reports: None, Hepatitis Genitourinary History: Reports: STD 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: , 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 Musculoskeletal History: Reports: None Neurological History: Reports: None Psychiatric History: Reports: Addiction, Anxiety, Depression Endocrine/Metabolic History: Reports: None Hematologic History: Reports: Anemia, Blood Transfusion(s) Immunologic History: Reports: None Oncologic (Cancer) History: Reports: None Dermatologic History: Reports: None - Infectious Disease History Infectious Disease History: Reports: Chicken Pox, Hepatitis C - Past Surgical History Head Surgeries/Procedures: Reports: None GI Surgical History: Reports: Appendectomy, Cholecystectomy Female Surgical History: Reports: Section, D&C, Other (See Below) Other Female Surgeries/Procedures: tubal. Social & Family History - Family History Family Medical History: No Pertinent Family History - Tobacco Use Tobacco Use Status *Q: Current Some Day Tobacco User Years of Tobacco use: 15 Packs/Tins Daily: 1 Second Hand Smoke Exposure: Yes - Caffeine Use Caffeine Use: Reports: Coffee - Recreational Drug Use Recreational Drug Use: No - Living Situation & Occupation Living situation: Reports: with Significant Other Occupation: Employed ED ROS ENT - Review of Systems Review Of Systems: Comprehensive ROS is negative, except as noted in HPI. ED EXAM, ENT - Physical Exam Exam: See Below Exam Limited By: No Limitations General Appearance: Alert, Mild Distress (Pain to throat) Eye Exam: Bilateral Eye: EOMI, Normal Inspection, PERRL (3mm) Ears: Normal External Exam, Normal Canal, Hearing Grossly Normal, Normal TMs Nose: Normal Inspection, Normal Mucousa, No Blood Mouth/Throat: Normal Gums, Normal Lips, Hoarse Voice, Pharyngeal Erythema, Throat Pain, Tonsillar Erythema (To left), Tonsillar Swelling (+3, left tonsil). No: Muffled Voice, Tongue Swelling, Tonsillar Exudates Head: Atraumatic, Normocephalic Neck: Supple, Full Range of Motion, Lymphadenopathy (L), Tender Lateral. No: Lymphadenopathy (R), Tender Midline Respiratory/Chest: No Respiratory Distress, Lungs Clear, Normal Breath Sounds, No Accessory Muscle Use, Chest Non-Tender Cardiovascular: Normal Peripheral Pulses, Regular Rate, Rhythm, No Edema, No Gallop, No JVD, No Murmur, No Rub Neurological: Alert, Oriented, CN II-XII Intact, Normal Cognition, Normal Gait, No Motor/Sensory Deficits Psychiatric: Normal Affect, Normal Mood Skin: Warm, Dry, Intact, Normal Color, No Rash. No: Ecchymosis, Erythema, Jaundice, Mottled, Pallor, Petechiae Course - Vital Signs Last Recorded V/S: Last Vital Signs Temp 98.2 F 03/29/21 20:14 Pulse 117 H 03/29/21 20:14 Resp 20 03/29/21 20:14 BP 148/107 H 03/29/21 20:14 Pulse Ox 100 03/29/21 20:14 - Orders/Labs/Meds Orders: Active Orders 24 hr Category Date Time Status CULTURE STREP A CONFIRMATION [RM] Stat Lab 03/29/21 20:08 Results STREP SCRN A RAPID W CULT CONF [RM] Stat Lab 03/29/21 20:09 Ordered cephALEXin [Keflex] Med 03/29/21 20:57 Once 500 mg PO ONETIME ONE - Re-Assessments/Exams Free Text/Narrative Re-Assessment/Exam: 03/29/21 Rapid Strep negative, however given history and physical exam will treat empirically for GAS pharyngitis. Discussed findings with patient as well as treatment and supportive cares. Red flag signs and symptoms which would warrant reevaluation reviewed. Patient verbalized understanding and agreement with the plan of care. Departure - Departure Time of Disposition: 20:49 Disposition: Home, Self-Care 01 Condition: Good Clinical Impression: Acute streptococcal pharyngitis - Discharge Information *PRESCRIPTION DRUG MONITORING PROGRAM REVIEWED*: Not Applicable *COPY OF PRESCRIPTION DRUG MONITORING REPORT IN PATIENT JONATHAN: Not Applicable Instructions: Strep Throat, Adult, [id number] Forms: ED Department Discharge Additional Instructions: Rx: cephalexin 1.) Take all of your antibiotic until gone, even as symptoms improve. 2.) You may take ibuprofen (Advil/Motrin) 400mg every six hours, as pain and swelling persists. You may also take acetaminophen (Tylenol) 650mg every six hours, as pain persists. You may stagger these medications so you are receiving a dose every three hours. 3.) Follow up with your primary care provider, or return to the emergency department, with any symptoms that persist past 2 days with medications. Sepsis Event Note (ED) - Evaluation Sepsis Screening Result: No Definite Risk - Focused Exam Vital Signs: Vital Signs Temp Pulse Resp BP Pulse Ox 03/29/21 20:14 98.2 F 117 H 20 148/107 H 100 - My Orders Last 24 Hours: My Active Orders 03/29/21 20:08 CULTURE STREP A CONFIRMATION [RM] Stat 03/29/21 20:09 STREP SCRN A RAPID W CULT CONF [RM] Stat 03/29/21 20:57 cephALEXin [Keflex] 500 mg PO ONETIME ONE - Assessment/Plan Last 24 Hours: My Active Orders 03/29/21 20:08 CULTURE STREP A CONFIRMATION [RM] Stat 03/29/21 20:09 STREP SCRN A RAPID W CULT CONF [RM] Stat 03/29/21 20:57 cephALEXin [Keflex] 500 mg PO ONETIME ONE
[2021-03-29] MEDS ORDERED: Cephalexin 500 MG Cap PO ONE (20:57)
== END 2021-03-29 21:11 | disposition home or self-care (01) ==
LOC: DL.ED 19:26
DX: J02.0 Streptococcal pharyngitis (principal); Z72.0 Tobacco use; Z88.5 Allergy status to narcotic agent; Z88.0 Allergy status to penicillin
CPT/HCPCS: 87081; 87430; 99282; 99283; A9270

== ENCOUNTER 2021-08-15 15:48 | Emergency (ER) | payer MEDICAID ==
[2021-08-15] MEDS ORDERED: Iopamidol 612 MG/ML 100 ML Bottle IVPUSH ONE (17:26)
--- NOTE | 2021-08-15 17:31 | EDM.PDOC ---
<Holli Garcia - Last Filed: 08/17/21 05:00> ED HPI GENERAL MEDICAL PROBLEM - General Chief Complaint: Abdominal Pain Stated Complaint: NAUSEA,FATIGUE,PAIN IN RIBS Time Seen by Provider: 08/15/21 17:00 - Related Data Allergies Allergy/AdvReac Type Severity Reaction Status Date / Time morphine Allergy Hives Verified 07/03/20 17:21 Penicillins Allergy Hives Verified 07/03/20 17:21 Home Meds: Home Meds Ascorbic Acid [Vitamin C] 1,000 mg PO DAILY 02/12/20 [History] Pnv No.95/Ferrous Fum/Folic AC [ Caplet] 1 tab PO DAILY 02/12/20 [History] ED ROS GENERAL - Review of Systems Review Of Systems: Comprehensive ROS is negative, except as noted in HPI. Departure - Departure Time of Disposition: 20:50 Disposition: DC/Tfer to Acute Hospital 02 Condition: Good Clinical Impression: Abdominal pain with vomiting, Elevated LFTs, Jaundice - Discharge Information *PRESCRIPTION DRUG MONITORING PROGRAM REVIEWED*: No *COPY OF PRESCRIPTION DRUG MONITORING REPORT IN PATIENT JONATHAN: No Referrals: PCP,None [Primary Care Provider] - Forms: ED Department Discharge, Interfacility Transfer EMTALA <Odessa Londono - Last Filed: 08/28/21 02:55> ED HPI GENERAL MEDICAL PROBLEM - General Source of Information: Reports: Patient, RN, RN Notes Reviewed History Limitations: Reports: No Limitations - History of Present Illness INITIAL COMMENTS - FREE TEXT/NARRATIVE: Sally is a 31 y/o female with a history of cirrhosis who presents to the ED via personal vehicle with complaints of weakness, nausea, and constipation. The patient states her symptoms started two days ago and have progressively worsened in that time. Additionally, she notes rigors, one bout of emesis yesterday. Her LBM was two days ago; she is currently on her menses. She has taken no medication or performed any supportive cares for her symptoms. She denies fever, shortness of breath, dyspepsia, dysuria, or hematuria. 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 Musculoskeletal History: Reports: None Neurological History: Reports: None Psychiatric History: Reports: Addiction, Anxiety, Depression Endocrine/Metabolic History: Reports: None Hematologic History: Reports: Anemia, Blood Transfusion(s) Immunologic History: Reports: None Oncologic (Cancer) History: Reports: None Dermatologic History: Reports: None - Infectious Disease History Infectious Disease History: Reports: Chicken Pox, Hepatitis C - Past Surgical History Head Surgeries/Procedures: Reports: None GI Surgical History: Reports: Appendectomy, Cholecystectomy Female Surgical History: Reports: Section, D&C, Other (See Below) Other Female Surgeries/Procedures: tubal. Social & Family History - Family History Family Medical History: No Pertinent Family History - Caffeine Use Caffeine Use: Reports: Coffee - Living Situation & Occupation Living situation: Reports: with Significant Other Occupation: Employed ED EXAM, GI/ABD - Physical Exam Exam: See Below Exam Limited By: No Limitations General Appearance: Alert, Mild Distress (Pain to left upper abdomen). No: Active Emesis Eyes: Bilateral: Normal Appearance (Sceral icterus) Ears: Normal External Exam, Normal Canal, Hearing Grossly Normal, Normal TMs Nose: Normal Inspection, Normal Mucosa, No Blood Throat/Mouth: Normal Inspection, Normal Oropharynx, Normal Voice, No Airway Compromise Head: Atraumatic, Normocephalic Neck: Normal Inspection, Full Range of Motion Respiratory/Chest: No Respiratory Distress, Lungs Clear, Normal Breath Sounds, No Accessory Muscle Use, Chest Non-Tender Cardiovascular: Normal Peripheral Pulses, Regular Rate, Rhythm, No Gallop, No Murmur, No Rub GI/Abdominal Exam: Soft, No Distention, No Abnormal Bruit, No Mass, Pelvis Stable, Tender (To palpation of LUQ and LLQ), Abnormal Bowel Sounds (Hypoactive bowel sounds). No: Guarding, Rigid, Rebound (Female) Exam: Deferred Rectal (Female) Exam: Deferred Back Exam: Normal Inspection, Full Range of Motion. No: CVA Tenderness (L), CVA Tenderness (R) Extremities: Normal Inspection, Normal Range of Motion, Non-Tender, No Pedal Edema, Normal Capillary Refill Neurological: Alert, Oriented, CN II-XII Intact, Normal Cognition, Normal Gait, Normal Reflexes, No Motor/Sensory Deficits Psychiatric: Normal Affect, Normal Mood Skin Exam: Warm, Intact, No Rash, Jaundice. No: Cyanosis, Mottled, Pallor Course - Vital Signs Last Recorded V/S: Last Vital Signs Temp 97.3 F 08/15/21 16:00 Pulse 66 08/15/21 16:00 Resp 14 08/15/21 16:00 BP 112/63 08/15/21 16:00 Pulse Ox 99 08/15/21 16:00 - Orders/Labs/Meds Labs: Laboratory Tests 08/15/21 08/15/21 08/15/21 Range/Units 16:54 16:54 16:54 WBC (5.0-10.0) 10^3/uL RBC (4.2-5.4) 10^6/uL Hgb (12.0-16.0) g/dL Hct (37.0-47.0) % MCV (80-100) fL MCH (27.0-34.0) pg MCHC (33.0-35.0) g/dL Plt Count (150-450) 10^3/uL Neut % (Auto) (42.2-75.2) % Lymph % (Auto) (20.5-50.1) % Gila % (Auto) (2-8) % Eos % (Auto) (1.0-3.0) % Baso % (Auto) (0.0-1.0) % Add Manual Diff Neutrophils % (Manual) (42-75) % Band Neutrophils % % Lymphocytes % (Manual) (20-50) % Monocytes % (Manual) (2-8) % Eosinophils % (Manual) (1-3) % Atypical Lymphocytes Platelet Estimate Hypochromasia Microcytosis Sodium (136-145) mmol/L Potassium (3.5-5.1) mmol/L Chloride (98-107) mmol/L Carbon Dioxide (21-32) mmol/L Anion Gap (7-13) mEq/L BUN (7-18) mg/dL Creatinine (0.55-1.02) mg/dL Est Cr Clr Drug Dosing Estimated GFR (MDRD) BUN/Creatinine Ratio (No establ ref range) Glucose (70-99) mg/dL Calcium (8.5-10.1) mg/dL Total Bilirubin (0.2-1.0) mg/dL AST (15-37) U/L ALT (14-59) U/L Alkaline Phosphatase (46-116) U/L Total Protein (6.4-8.2) g/dL Albumin (3.4-5.0) g/dL Globulin Albumin/Globulin Ratio Amylase (25-115) U/L Lipase (73-393) U/L Urine Color Mariam (YELLOW) Urine Appearance Cloudy (CLEAR) Urine pH 6.0 (5.0-9.0) Ur Specific [place] >= 1.030 (1.005-1.030) Urine Protein 100 H (NEGATIVE) Urine Glucose (UA) Negative (NEGATIVE) Urine Ketones Trace H (NEGATIVE) Urine Occult Blood Large H (NEGATIVE) Urine Nitrite Negative (NEGATIVE) Urine Bilirubin Large H (NEGATIVE) Urine Urobilinogen 2.0 H (0.2-1.0) mg/dL Ur Leukocyte Esterase Negative (NEGATIVE) Urine RBC Semi-packed H (0-5) /HPF Urine WBC 0-5 (0-5/HPF) /HPF Ur Epithelial Cells Few (NOT SEEN) /HPF Urine Bacteria Few (0-FEW/HPF) /HPF Urine Mucus Few H (NOT SEEN) /LPF Urine HCG, Qual Negative Urine Opiates Screen Negative (NEGATIVE) Ur Oxycodone Screen Negative (NEGATIVE) Urine Methadone Screen Negative (NEGATIVE) Ur Barbiturates Screen Negative (NEGATIVE) U Tricyclic Antidepress Negative (NEGATIVE) Ur Phencyclidine Scrn Negative (NEGATIVE) Ur Amphetamine Screen Positive H (NEGATIVE) U Methamphetamines Scrn Positive H (NEGATIVE) Urine MDMA Screen Negative (NEGATIVE) U Benzodiazepines Scrn Negative (NEGATIVE) Urine Cocaine Screen Negative (NEGATIVE) U Marijuana (THC) Screen Positive H (NEGATIVE) SARS CoV-2 RNA Rapid KATYA (NEGATIVE) 08/15/21 08/15/21 08/15/21 Range/Units 17:16 17:16 19:40 WBC 6.6 (5.0-10.0) 10^3/uL RBC 5.49 H (4.2-5.4) 10^6/uL Hgb 13.3 (12.0-16.0) g/dL Hct 40.3 (37.0-47.0) % MCV 73.4 L D (80-100) fL MCH 24.2 L (27.0-34.0) pg MCHC 33.0 (33.0-35.0) g/dL Plt Count 145 L D (150-450) 10^3/uL Neut % (Auto) 44.2 (42.2-75.2) % Lymph % (Auto) 37.1 (20.5-50.1) % Gila % (Auto) 16.0 H (2-8) % Eos % (Auto) 2.4 (1.0-3.0) % Baso % (Auto) 0.3 (0.0-1.0) % Add Manual Diff Yes Neutrophils % (Manual) 41 L (42-75) % Band Neutrophils % 5 % Lymphocytes % (Manual) 40 (20-50) % Monocytes % (Manual) 10 H (2-8) % Eosinophils % (Manual) 4 H (1-3) % Atypical Lymphocytes Few Platelet Estimate Decreased Hypochromasia 1+ slight Microcytosis 1+ slight Sodium 135 L (136-145) mmol/L Potassium 3.5 (3.5-5.1) mmol/L Chloride 99 (98-107) mmol/L Carbon Dioxide 26 (21-32) mmol/L Anion Gap 13.5 H (7-13) mEq/L BUN 4 L (7-18) mg/dL Creatinine 0.66 (0.55-1.02) mg/dL Est Cr Clr Drug Dosing TNP Estimated GFR (MDRD) > 60 BUN/Creatinine Ratio 6.1 (No establ ref range) Glucose 104 H (70-99) mg/dL Calcium 8.1 L (8.5-10.1) mg/dL Total Bilirubin 4.3 H (0.2-1.0) mg/dL AST > 1000 H (15-37) U/L ALT > 1000 H (14-59) U/L Alkaline Phosphatase 477 H (46-116) U/L Total Protein 7.5 (6.4-8.2) g/dL Albumin 3.2 L (3.4-5.0) g/dL Globulin 4.3 Albumin/Globulin Ratio 0.74 Amylase 52 (25-115) U/L Lipase 279 (73-393) U/L Urine Color (YELLOW) Urine Appearance (CLEAR) Urine pH (5.0-9.0) Ur Specific [place] (1.005-1.030) Urine Protein (NEGATIVE) Urine Glucose (UA) (NEGATIVE) Urine Ketones (NEGATIVE) Urine Occult Blood (NEGATIVE) Urine Nitrite (NEGATIVE) Urine Bilirubin (NEGATIVE) Urine Urobilinogen (0.2-1.0) mg/dL Ur Leukocyte Esterase (NEGATIVE) Urine RBC (0-5) /HPF Urine WBC (0-5/HPF) /HPF Ur Epithelial Cells (NOT SEEN) /HPF Urine Bacteria (0-FEW/HPF) /HPF Urine Mucus (NOT SEEN) /LPF Urine HCG, Qual Urine Opiates Screen (NEGATIVE) Ur Oxycodone Screen (NEGATIVE) Urine Methadone Screen (NEGATIVE) Ur Barbiturates Screen (NEGATIVE) U Tricyclic Antidepress (NEGATIVE) Ur Phencyclidine Scrn (NEGATIVE) Ur Amphetamine Screen (NEGATIVE) U Methamphetamines Scrn (NEGATIVE) Urine MDMA Screen (NEGATIVE) U Benzodiazepines Scrn (NEGATIVE) Urine Cocaine Screen (NEGATIVE) U Marijuana (THC) Screen (NEGATIVE) SARS CoV-2 RNA Rapid KATYA Negative (NEGATIVE) Meds: Medications Discontinued Medications Generic Name Dose Route Start Last Admin Trade Name Freq PRN Reason Stop Dose Admin Iopamidol 100 ml 08/15/21 17:26 08/15/21 18:06 Iopamidol 612 Mg/Ml 100 Ml Bottle IVPUSH 08/15/21 17:27 75 ml ONETIME ONE Administration Ondansetron HCl 4 mg 08/15/21 19:56 08/15/21 20:10 Ondansetron 4 Mg/2 Ml Sdv IVPUSH 08/15/21 19:57 4 mg ONETIME ONE Administration - Radiology Interpretation Free Text/Narrative:: [facility] Final Radiology Report Call: [phone] assistance Online chat: [email or web address] Name: SALLY GOFF Age: 31Years F Date: 08/15/2021 SSN: -- : 1990 Study: CT ABDOMEN PELVIS W CONT Requesting Physician: Odessa Londono Images: [id number] Addl Studies: Provided Clinical History: Bilateral upper quadrant abdominal pain Contrast: With Contrast Medium: Isovue 300 Contrast Amount: 75 mL Contrast Method: Intravenous (IV) Page 1 of 2 PROCEDURE INFORMATION: Exam: CT Abdomen And Pelvis With Contrast Exam date and time: 08/15/2021 5:31 PM Age: 31 years old Clinical indication: Abdominal pain; Localized; Upper; Prior surgery; Surgery date: 6+ months; Surgery type: Cholecystectomy, appendectomy; Additional info: Bilateral upper quadrant abdominal pain TECHNIQUE: Imaging protocol: Computed tomography of the abdomen and pelvis with contrast. Radiation optimization: All CT scans at this facility use at least one of these dose optimization techniques: automated exposure control; mA and/or kV adjustment per patient size (includes targeted exams where dose is matched to clinical indication); or iterative reconstruction. Contrast material: ISOVUE 300; Contrast volume: 75 ml; Contrast route: INTRAVENOUS (IV); COMPARISON: CR Ribs 2V w Chest Lt 05/12/2019 8:56 PM FINDINGS: Lungs: Unremarkable.No mass or nodule. Liver: Normal. No mass. Gallbladder and bile ducts: Post cholecystectomy, appendectomy. Pancreas: Normal. No ductal dilation. Spleen: Normal. No splenomegaly. Adrenal glands: Normal. No mass. Kidneys and ureters: Normal. No hydronephrosis. Stomach and bowel: Unremarkable. No obstruction. No mucosal thickening. Appendix: No evidence of appendicitis. Intraperitoneal space: Unremarkable. No free air. Possible small amount of fluid at the cholecystectomy site. Free fluid also noted in the dependent pelvis. Vasculature: Unremarkable. No abdominal aortic aneurysm. Lymph nodes: Unremarkable. No enlarged lymph nodes. Urinary bladder: Unremarkable as visualized. Reproductive: Unremarkable as visualized. Small left ovarian cyst. Bones/joints: Unremarkable. No acute fracture. Soft tissues: Unremarkable. IMPRESSION: 1. Post cholecystectomy with suggestion of of fluid in the gallbladder fossa. Etiology and clinical significance uncertain. 2. Small volume of free fluid in the dependent pelvis. 3. No other significant abdominal or pelvic Thank you for allowing us to participate in the care of your patient. Dictated and Authenticated by: Margarito Ventura MD 08/15/2021 6:27 PM Central Time ([place] & [place]) - Re-Assessments/Exams Free Text/Narrative Re-Assessment/Exam: 08/15/21 Given labs and examination will obtain CT abdomen/pelvis. Case discussed with [facility], [facility], [facility], and [facility] unable to accept patient given bed status. Case discussed with Dr. Child [facility] in [place], who kindly accepted patient for transfer. Findings of examination, imaging, lab work and discussion with Dr. Child reviewed with patient. Patient verbalized understanding and agreement with the plan of care. 08/15/21 Care of patient transferred to Holli Garcia PA-C at 1900.
[2021-08-15 17:47] LABS: ANION GAP 13.5 mEq/L (7-13); CHLORIDE,CL 99 mmol/L (98-107); SODIUM,NA 135 mmol/L (136-145)
[2021-08-15 18:11] VITALS: BP 112/63; PULSE 66
--- NOTE | 2021-08-15 18:27 | CT ---
PROCEDURE INFORMATION: Exam: CT Abdomen And Pelvis With Contrast Exam date and time: 08/15/2021 5:31 PM Age: 31 years old Clinical indication: Abdominal pain; Localized; Upper; Prior surgery; Surgery date: 6+ months; Surgery type: Cholecystectomy, appendectomy; Additional info: Bilateral upper quadrant abdominal pain TECHNIQUE: Imaging protocol: Computed tomography of the abdomen and pelvis with contrast. Radiation optimization: All CT scans at this facility use at least one of these dose optimization techniques: automated exposure control; mA and/or kV adjustment per patient size (includes targeted exams where dose is matched to clinical indication); or iterative reconstruction. Contrast material: ISOVUE 300; Contrast volume: 75 ml; Contrast route: INTRAVENOUS (IV); COMPARISON: CR Ribs 2V w Chest Lt 05/12/2019 8:56 PM FINDINGS: Lungs: Unremarkable.No mass or nodule. Liver: Normal. No mass. Gallbladder and bile ducts: Post cholecystectomy, appendectomy. Pancreas: Normal. No ductal dilation. Spleen: Normal. No splenomegaly. Adrenal glands: Normal. No mass. Kidneys and ureters: Normal. No hydronephrosis. Stomach and bowel: Unremarkable. No obstruction. No mucosal thickening. Appendix: No evidence of appendicitis. Intraperitoneal space: Unremarkable. No free air. Possible small amount of fluid at the cholecystectomy site. Free fluid also noted in the dependent pelvis. Vasculature: Unremarkable. No abdominal aortic aneurysm. Lymph nodes: Unremarkable. No enlarged lymph nodes. Urinary bladder: Unremarkable as visualized. Reproductive: Unremarkable as visualized. Small left ovarian cyst. Bones/joints: Unremarkable. No acute fracture. Soft tissues: Unremarkable. IMPRESSION: 1. Post cholecystectomy with suggestion of of fluid in the gallbladder fossa. Etiology and clinical significance uncertain. 2. Small volume of free fluid in the dependent pelvis. 3. No other significant abdominal or pelvic
[2021-08-15] MEDS ORDERED: Ondansetron 4 MG/2 ML SDV IVPUSH ONE (19:56)
[2021-08-15 20:35] LABS: AMPHETAMINES,URINE POSITIVE (NEGATIVE); BARBITURATES,URINE NEGATIVE (NEGATIVE); BENZODIAZEPINE,URINE NEGATIVE (NEGATIVE); MDMA (ECSTASY), URINE NEGATIVE (NEGATIVE); METHADONE,URINE NEGATIVE (NEGATIVE); METHAMPHETAMINES,URINE POSITIVE (NEGATIVE); OPIATES,URINE NEGATIVE (NEGATIVE); OXYCODONE,URINE NEGATIVE (NEGATIVE); PHENCYCLIDINE,URINE NEGATIVE (NEGATIVE); TCA,URINE NEGATIVE (NEGATIVE)
== END 2021-08-15 20:50 ==
LOC: DL.ED 15:48
DX: R17 Unspecified jaundice (principal); R11.2 Nausea with vomiting, unspecified; R79.89 Other specified abnormal findings of blood chemistry; Z88.0 Allergy status to penicillin; Z88.5 Allergy status to narcotic agent; Z20.822 Contact with and (suspected) exposure to COVID-19
CPT/HCPCS: 36415; 74177; 80053; 80305; 81001; 81025; 82150; 83690; 85025; 87635; 96374; 99285; J2405; Q9967; U0002

== ENCOUNTER 2022-07-07 17:14 | Emergency (ER) | payer MEDICAID ==
[2022-07-07] MEDS: Bacitracin Oint 1 GM U/D Packet TOP ONE (20:18)
[2022-07-07 20:51] VITALS: BP 122/78; PULSE 76
[2022-07-07 21:17] LABS: ANION GAP 14.1 mEq/L (7-13)
[2022-07-07] MEDS ORDERED: Clindamycin HCl 150 MG Cap PO ONE (22:13)
[2022-07-07] MEDS: Ibuprofen 600 MG Tab PO ONE (22:30)
== END 2022-07-07 22:38 | disposition home or self-care (01) ==
LOC: DL.ED 17:14
DX: L03.116 Cellulitis of left lower limb (principal); M25.462 Effusion, left knee; F17.210 Nicotine dependence, cigarettes, uncomplicated; Z88.5 Allergy status to narcotic agent; Z88.0 Allergy status to penicillin
CPT/HCPCS: 36415; 73560-LT; 80053; 83605; 84703; 85025; 86140; 87040; 87070; 87077; 87186; 87205; 96365; 96366; 99283-25; 99284; A9270-GY; J3370; J7050

== ENCOUNTER 2022-12-13 22:46 | Emergency (ER) | payer MEDICAID ==
[2022-12-13] MEDS ORDERED: MVI, Adult with Vitamin K 10 ML, Folic Acid 1 MG, Thiamine 100 MG in Lactated Ringers 1... IV ONE ×4 (22:51)
[2022-12-13 23:12] VITALS: BP 126/87; PULSE 100
[2022-12-13 23:12] LABS: AMPHETAMINES,URINE POSITIVE (NEGATIVE); BARBITURATES,URINE NEGATIVE (NEGATIVE); BENZODIAZEPINE,URINE NEGATIVE (NEGATIVE); MDMA (ECSTASY), URINE NEGATIVE (NEGATIVE); METHADONE,URINE NEGATIVE (NEGATIVE); METHAMPHETAMINES,URINE POSITIVE (NEGATIVE); OPIATES,URINE NEGATIVE (NEGATIVE); OXYCODONE,URINE NEGATIVE (NEGATIVE); PHENCYCLIDINE,URINE NEGATIVE (NEGATIVE); TCA,URINE NEGATIVE (NEGATIVE)
[2022-12-13 23:23] LABS: ANION GAP 16.5 mEq/L (7-13); CHLORIDE,CL 110 mmol/L (98-107); SODIUM,NA 146 mmol/L (136-145)
[2022-12-13 23:34] LABS: ACETAMINOPHEN 0 ug/mL (10-30 (Therapeutic)); ESTIMATED GFR 103 mL/min (>=60)
[2022-12-13] MEDS ORDERED: Sodium Chloride 0.9% 1,000 ML IV ONE (23:35)
[2022-12-14] MEDS ORDERED: Ondansetron 4 MG/2 ML SDV ONE (04:03)
== END 2022-12-14 04:48 | disposition home or self-care (01) ==
LOC: DL.ED 22:46
DX: F10.10 Alcohol abuse, uncomplicated (principal); F15.10 Other stimulant abuse, uncomplicated; Z88.6 Allergy status to analgesic agent; Z88.0 Allergy status to penicillin; Z79.899 Other long term (current) drug therapy; Z90.49 Acquired absence of other specified parts of digestive tract
CPT/HCPCS: 36415; 80053; 80143; 80179; 80305; 80307; 81001; 81025; 83605; 83735; 85025; 96365; 99285; J3411; J7030; J7120; J3490

== ENCOUNTER 2023-01-22 17:44 | Inpatient (IN) | payer MEDICAID ==
[2023-01-22] MEDS ORDERED: LORazepam 2 MG/ML SDV IVPUSH ONE (18:08)
[2023-01-22] MEDS ORDERED: MVI, Adult with Vitamin K 10 ML, Thiamine 100 MG, Folic Acid 1 MG in Lactated Ringers 1... IV ONE ×4 (18:08)
[2023-01-22] MEDS ORDERED: Ondansetron 4 MG/2 ML SDV IV ONE (18:08)
[2023-01-22] MEDS: Sodium Chloride 0.9% 10 ML Syringe FLUSH PRN (18:16)
[2023-01-22 18:41] LABS: AMPHETAMINES,URINE NEGATIVE (NEGATIVE); BARBITURATES,URINE NEGATIVE (NEGATIVE); BENZODIAZEPINE,URINE NEGATIVE (NEGATIVE); MDMA (ECSTASY), URINE NEGATIVE (NEGATIVE); METHADONE,URINE NEGATIVE (NEGATIVE); METHAMPHETAMINES,URINE POSITIVE (NEGATIVE); OPIATES,URINE NEGATIVE (NEGATIVE); OXYCODONE,URINE NEGATIVE (NEGATIVE); PHENCYCLIDINE,URINE NEGATIVE (NEGATIVE); TCA,URINE NEGATIVE (NEGATIVE)
[2023-01-22 18:48] LABS: PTT,PARTIAL THROMBOPLSTIN TIME 23.3 SEC (22.0-34.0)
[2023-01-22] MEDS ORDERED: Nitrofurantoin Monohydrate/Macrocrystalline 100 MG Cap PO ONE (19:22)
[2023-01-22 19:45] LABS: ESTIMATED GFR 119 mL/min (>=60)
[2023-01-22] MEDS ORDERED: Magnesium Sulfate/Water 2 GM in Premix Bag 1 BAG IV ONE (19:59)
[2023-01-22 20:08] LABS: ANION GAP 16.7 mEq/L (7-13); CHLORIDE,CL 99 mmol/L (98-107); SODIUM,NA 136 mmol/L (136-145)
[2023-01-22] MEDS ORDERED: Ondansetron 4 MG/2 ML SDV IVPUSH PRN (22:33)
[2023-01-22] MEDS ORDERED: Docusate Sodium 100 MG Cap PO PRN (22:33)
[2023-01-22] MEDS ORDERED: Acetaminophen 325 MG Tab PO PRN (22:33)
[2023-01-22] MEDS ORDERED: LORazepam 0.5 MG Tab PO PRN (22:37)
[2023-01-23] MEDS ORDERED: Pantoprazole 40 MG Tab.CR PO SCH (06:00)
[2023-01-23] MEDS: Sodium Chloride 0.9% 10 ML Syringe FLUSH PRN (08:12)
[2023-01-23 08:19] VITALS: BP 141/89; PULSE 84
[2023-01-23] MEDS ORDERED: Thiamine 100 MG Tab PO SCH (09:00)
[2023-01-23] MEDS ORDERED: Multivitamin Tab PO SCH (09:00)
[2023-01-23] MEDS ORDERED: ClonazePAM 0.5 MG Tab PO SCH (09:00)
[2023-01-23] MEDS: cefTRIAXone 1 GM Vial IVPUSH SCH ×2 (11:02→11:03)
[2023-01-23] MEDS ORDERED: Nicotine 21 MG/24 Hr Patch TRDERM SCH (12:45)
[2023-01-23] MEDS ORDERED: Check Patch TRDERM SCH (21:00)
== END 2023-01-23 13:06 | disposition left against medical advice (07) | DRG 894 ==
LOC: DL.ED 17:44 → DL.MS 20:27 → DL.ED 21:08
PROVIDERS: ADMIT Internal Medicine; ATTEND Internal Medicine
PROC: HZ2ZZZZ Detoxification Services for Substance Abuse Treatment (ICD-10-PCS; principal; 2023-01-22)
DX: F10.230 Alcohol dependence with withdrawal, uncomplicated (principal); F10.239 Alcohol dependence with withdrawal, unspecified; E86.0 Dehydration; R10.13 Epigastric pain; N39.0 Urinary tract infection, site not specified; F12.90 Cannabis use, unspecified, uncomplicated; E83.42 Hypomagnesemia; F41.9 Anxiety disorder, unspecified; F12.10 Cannabis abuse, uncomplicated; F15.10 Other stimulant abuse, uncomplicated; D50.9 Iron deficiency anemia, unspecified; F17.210 Nicotine dependence, cigarettes, uncomplicated; F32.A Depression, unspecified; Z90.49 Acquired absence of other specified parts of digestive tract; Z98.890 Other specified postprocedural states; Z98.51 Tubal ligation status; Z86.19 Personal history of other infectious and parasitic diseases
CPT/HCPCS: 36415; 80053; 80305-QW; 80307; 81001; 81025; 82140; 82150; 83690; 83735; 84443; 85025; 85610; 85730; 87086; 87088; 87186; 87491; 87563; 87591; 96365; 96367; 96375; 99222; 99239; 99284; 99285-25; A9270-GY; J0696; J2060; J2405; J3411; J3475; J3490; J7120

== ENCOUNTER 2023-12-28 13:44 | Emergency (ER) | payer OTHER ==
[2023-12-28 14:24] VITALS: BP 114/59; PULSE 83
[2023-12-28] MEDS: Acetaminophen 500 MG Tab PO ONE (14:32)
[2023-12-28 14:34] LABS: APPEARANCE,URINE CLEAR (CLEAR); BILIRUBIN,URINE NEGATIVE (NEGATIVE); COLOR,URINE YELLOW (YELLOW); GLUCOSE,URINE NEGATIVE (NEGATIVE); KETONES,URINE NEGATIVE (NEGATIVE); LEUKOCYTE ESTERASE,URINE TRACE (NEGATIVE); NITRITE,URINE NEGATIVE (NEGATIVE); OCCULT BLOOD,URINE NEGATIVE (NEGATIVE); PROTEIN,URINE NEGATIVE (NEGATIVE); UROBILINOGEN,URINE 0.2 mg/dL (0.2-1.0)
[2023-12-28 14:47] LABS: BASOPHILS PERCENT AUTO 0.3 % (0.0-1.0); EOSINOPHILS PERCENT AUTO 1.6 % (1.0-3.0); HEMATOCRIT 33.4 % (37.0-47.0); HEMOGLOBIN 10.5 g/dL (12.0-16.0); LYMPHOCYTES PERCENT AUTO 37.7 % (20.5-50.1); MEAN CORPUSCULAR HEMOGLOBIN 22.4 pg (27.0-34.0); MEAN CORPUSCULAR HGB CONC 31.4 g/dL (33.0-35.0); MEAN CORPUSCULAR VOLUME 71.2 fL (80-100); NEUTROPHILS PERCENT AUTO 52.4 % (42.2-75.2); PLATELET COUNT,PLT 305 10^3/uL (150-450); RED BLOOD CELL COUNT 4.69 10^6/uL (4.2-5.4)
[2023-12-28] MEDS: metroNIDAZOLE 250 MG Tab PO ONE (14:55)
[2023-12-28 15:03] LABS: BACTERIA,URINE FEW /HPF (0-FEW/HPF); EPITHELIAL CELLS,URINE FEW /HPF (NOT SEEN); MUCUS,URINE MODERATE /LPF (NOT SEEN)
[2023-12-28 15:09] LABS: ALANINE AMINOTRANSFERASE,ALT 49 U/L (14-59); ALBUMIN 3.2 g/dL (3.4-5.0); ALKALINE PHOSPHATASE 87 U/L (46-116); ANION GAP 13.6 mEq/L (7-13); ASPARTATE AMNIOTRANSFERASE,AST 18 U/L (15-37); BILIRUBIN TOTAL 0.6 mg/dL (0.2-1.0); BLOOD UREA NITROGEN,BUN 12 mg/dL (7-18); BUN/CREATININE RATIO 18.5 (No establ ref range); CALCIUM 8.4 mg/dL (8.5-10.1); CARBON DIOXIDE,CO2 25 mmol/L (21-32); CHLORIDE,CL 106 mmol/L (98-107); CREATININE 0.65 mg/dL (0.55-1.02); EST CRCL DRUG DOSING (CG) 102.78 mL/min; GLUCOSE RANDOM 91 mg/dL (70-99); POTASSIUM,K 4.6 mmol/L (3.5-5.1); PROTEIN TOTAL,TP 7.9 g/dL (6.4-8.2); SODIUM,NA 140 mmol/L (136-145)
[2023-12-28] MEDS: Ketorolac 30 MG/ML SDV IM ONE (15:10)
[2023-12-28 15:24] LABS: A/G RATIO 0.68; ESTIMATED GFR 120 mL/min (>=60)
[2023-12-30 12:46] LABS: C.TRACHOMATIS BY TMA Negative (Negative); N.GONORRHOEAE BY TMA Negative (Negative); SOURCE URINE
== END 2023-12-28 16:27 | disposition home or self-care (01) ==
LOC: DL.ED 13:44
DX: A59.01 Trichomonal vulvovaginitis (principal); N76.0 Acute vaginitis; Z88.5 Allergy status to narcotic agent; Z88.0 Allergy status to penicillin
CPT/HCPCS: 36415; 80053; 81001; 85025; 86592; 87086; 87210; 87389; 87491; 87591; 96372; 99284; A9270-GY; J1885

== ENCOUNTER 2024-10-21 12:21 | Emergency (ER) | payer SELFPAY ==
[2024-10-21 13:00] LABS: BASOPHILS PERCENT AUTO 0.1 % (0.0-1.0); EOSINOPHILS PERCENT AUTO 0.5 % (1.0-3.0); HEMATOCRIT 41.3 % (37.0-47.0); HEMOGLOBIN 13.5 g/dL (12.0-16.0); LYMPHOCYTES PERCENT AUTO 28.7 % (20.5-50.1); MEAN CORPUSCULAR HEMOGLOBIN 23.6 pg (27.0-34.0); MEAN CORPUSCULAR HGB CONC 32.7 g/dL (33.0-35.0); MEAN CORPUSCULAR VOLUME 72.2 fL (80-100); MONOCYTES PERCENT AUTO 5.9 % (2-8); NEUTROPHILS PERCENT AUTO 64.8 % (42.2-75.2); PLATELET COUNT,PLT 271 10^3/uL (150-450); RED BLOOD CELL COUNT 5.72 10^6/uL (4.2-5.4); WHITE BLOOD CELL COUNT,WBC 7.7 10^3/uL (5.0-10.0)
[2024-10-21 13:31] LABS: A/G RATIO 0.8; ALANINE AMINOTRANSFERASE,ALT 62 U/L (14-59); ALKALINE PHOSPHATASE 104 U/L (46-116); ANION GAP 16.8 mEq/L (7-13); ASPARTATE AMNIOTRANSFERASE,AST 39 U/L (15-37); BILIRUBIN TOTAL 0.7 mg/dL (0.2-1.0); BLOOD UREA NITROGEN,BUN 7 mg/dL (7-18); CALCIUM 9.1 mg/dL (8.5-10.1); CARBON DIOXIDE,CO2 24 mmol/L (21-32); CHLORIDE,CL 105 mmol/L (98-107); EST CRCL DRUG DOSING (CG) 66.19 mL/min; GLUCOSE RANDOM 117 mg/dL (70-99); MAGNESIUM 1.7 mg/dL (1.8-2.4); POTASSIUM,K 3.8 mmol/L (3.5-5.1); PROTEIN TOTAL,TP 8.8 g/dL (6.4-8.2); SODIUM,NA 142 mmol/L (136-145); T4 FREE 1.02 ng/dL (0.76-1.46)
[2024-10-21 13:34] LABS: ESTIMATED GFR 76 mL/min (>=60)
[2024-10-21 13:35] LABS: PTT,PARTIAL THROMBOPLSTIN TIME 25.6 SEC (22.0-34.0)
[2024-10-21] MEDS: GI Cocktail Oral Solution 30 ML PO ONE (13:47)
[2024-10-21 13:57] LABS: APPEARANCE,URINE CLEAR (CLEAR); BILIRUBIN,URINE NEGATIVE (NEGATIVE); COLOR,URINE YELLOW (YELLOW); GLUCOSE,URINE NEGATIVE (NEGATIVE); KETONES,URINE NEGATIVE (NEGATIVE); LEUKOCYTE ESTERASE,URINE NEGATIVE (NEGATIVE); NITRITE,URINE NEGATIVE (NEGATIVE); OCCULT BLOOD,URINE MODERATE (NEGATIVE); PH,URINE 5.5 (5.0-9.0); PROTEIN,URINE 30 (NEGATIVE); UROBILINOGEN,URINE 0.2 mg/dL (0.2-1.0)
[2024-10-21 14:03] LABS: MUCUS,URINE MODERATE /LPF (NOT SEEN)
[2024-10-21 14:04] LABS: BACTERIA,URINE FEW /HPF (0-FEW/HPF); EPITHELIAL CELLS,URINE RARE /HPF (NOT SEEN)
[2024-10-21 14:05] LABS: WBC,URINE 0-5 /HPF (0-5/HPF)
[2024-10-21 14:06] LABS: FINE GRANULAR CASTS,URINE RARE /LPF (NOT SEEN); HYALINE CASTS,URINE FEW
[2024-10-21] MEDS: Iopamidol 755 Mg/ML 100 ML Bottle IVPUSH ONE (15:01)
[2024-10-21 15:52] VITALS: BP 148/88; PULSE 67
== END 2024-10-21 15:40 | disposition home or self-care (01) ==
LOC: DL.ED 12:21
DX: R07.89 Other chest pain (principal); Z90.49 Acquired absence of other specified parts of digestive tract; Z87.891 Personal history of nicotine dependence; Z88.0 Allergy status to penicillin; Z88.5 Allergy status to narcotic agent; Z79.899 Other long term (current) drug therapy
CPT/HCPCS: 36415; 71045; 71275; 80053; 81001; 81025; 83735; 84439; 84484; 85025; 85379; 85610; 85730; 93005; 99285; A9270-GY; Q9967